=== PATIENT | female | born 1960 | race Two or more races ===

== ENCOUNTER 2019-05-27 13:26 | Emergency (ER) | payer MEDICAID, OTHER ==
[~2019-05-27] VITALS: Ht 157.5 cm; Wt 13.2 kg
[2019-05-27 13:31] VITALS: BP 122/87
== END 2019-05-27 14:30 | disposition home or self-care (01) ==
LOC: EDBD 13:26 → ER 13:30
DX: S70.02XA Contusion of left hip, initial encounter (principal); S80.02XA Contusion of left knee, initial encounter; S50.02XA Contusion of left elbow, initial encounter; E11.9 Type 2 diabetes mellitus without complications; W01.0XXA Fall on same level from slipping, tripping and stumbling without subsequent striking against object, initial encounter; Y93.89 Activity, other specified; Y92.89 Other specified places as the place of occurrence of the external cause; Y99.8 Other external cause status
CPT/HCPCS: 73070; 73502; 73560